=== PATIENT | female | born 1985 | race African-American/Black ===

== ENCOUNTER → 2017-02-08 | Outpatient (CLI) | payer BC ==
[~2017-02-08] MED LIST: ATORVASTATIN CA10 MG PO; AZULFIDINE ENT500 MG PO; AZULFIDINE PO; CERTAGEN PO; GLUCOPHAGE850 MG PO; LORTAB 5/500 TA1 TA1 PO; METFORMIN HCL1000 M1 PO; NAPROSYN-EC500 M1 DOB; PRILOSEC PO; SKELAXIN PO
--- NOTE | ~2017-02-08 | CR151 ---
[facility] A Service of [facility] & [facility] RADIOLOGY TEXT RESULTS PATIENT: JONATHAN GONSALES LOCATION: [facility] : [birth year] UNIT #: [id number] AGE: [address]: Janine Sosa MD SEX: F ORDER DR: [id number] [facility] [address] [place], [place] [address] [id number] O MR#: [id number] Acc #: [id number] NAME: JONATHAN GONSALES : 1985 SEX: F STUDY DATE/TIME: 02/08/2017 11:29 UNIT: [facility] ROOM: STUDY DESCRIPTION: CR Hip Min 2 Views Rt Attending Physician: Janine Sosa M.D. Referring Physician: Janine Sosa M.D. Ordering Physician: Janine Sosa M.D. Primary Care Physician: Janine Sosa M.D. MEDICAL IMAGING REPORT This report is preliminary unless electronic signature is present EXAM Right hip 3 views 02/08/2017 HISTORY Right hip pain chronic for 2 years with no known injury. FINDINGS AP and oblique examination of the hip shows adequate mineralization of the bones and a normal anatomic relationship of the femoral head with the acetabulum. There are no hypertrophic changes, fractures, dislocation, or joint capsular distension. No radiopaque foreign body is present about the soft tissues of the hip. IMPRESSION Normal hip. Dictated by... Ridge Steinberg M.D. THIS IS AN ELECTRONICALLY VERIFIED REPORT Ridge Steinberg M.D. at 02/11/2017 7:39 AM KIZZY/patito TD: 02/09/2017 01:07 JOB #: [id number] MEDICAL IMAGING REPORT Page 1 of 1 COPY
--- NOTE | ~2017-02-08 | CR184 ---
[facility] A Service of [facility] & [facility] RADIOLOGY TEXT RESULTS PATIENT: JONATHAN GONSALES LOCATION: [facility] : 83 UNIT #: [id number] AGE: [address]: Janine Sosa MD SEX: F ORDER DR: [id number] [facility] [address] [place], [place] [address] [id number] O MR#: [id number] Acc #: [id number] NAME: JONATHAN GONSALES : 1985 SEX: F STUDY DATE/TIME: 02/08/2017 11:40 UNIT: [facility] ROOM: STUDY DESCRIPTION: CR Lumbar Spine Min 4 Views Attending Physician: Janine Sosa M.D. Referring Physician: Janine Sosa M.D. Ordering Physician: Janine Sosa M.D. Primary Care Physician: Janine Sosa M.D. MEDICAL IMAGING REPORT This report is preliminary unless electronic signature is present EXAM Lumbar spine 5 views 02/08/2017 HISTORY Low back pain with right lower extremity radiculopathy for 2 years worse when standing no known injury. FINDINGS AP and lateral projections of the lumbar segment show good mineralization of both anterior and posterior elements. They are all anatomically normal without indication of fracture, dislocation, or malignant change of a sclerotic or lytic type. There is no congenital defect noted. The sacroiliac joints are normal. IMPRESSION Normal lumbar spine. Dictated by... Ridge Steinberg M.D. THIS IS AN ELECTRONICALLY VERIFIED REPORT Ridge Steinberg M.D. at 02/11/2017 7:39 AM KIZZY/patito TD: 02/09/2017 01:30 JOB #: [id number] MEDICAL IMAGING REPORT Page 1 of 1 COPY
== END | disposition home or self-care (01) ==
LOC: CRAD 11:03
DX: M25.551 Pain in right hip (principal); M54.16 Radiculopathy, lumbar region
CPT/HCPCS: 72110; 73502

== ENCOUNTER → 2017-02-27 | Day surgery (SDC) | payer BC ==
--- NOTE | ~2017-02-27 | OR ---
Unit #: [id number] #: [id number] Patient: JONATHAN GONSALES [id number] [address] [place], [place] [address] [id number] O MR#: [id number] NAME: JONATHAN GONSALES ROOM: Date of Procedure: 02/27/2017 Admission Date: 02/27/2017 Surgeon: Ambrosio Curry M.D. : 1985 Attending Physician: Ambrosio Curry M.D. Referring Physician: Ambrosio Curry M.D. Primary Care Physician: Janine Sosa M.D. OPERATIVE REPORT PRIMARY CARE PHYSICIAN Pop Austin M.D. PREOPERATIVE DIAGNOSIS Presence of blood in the stool. PROCEDURE PERFORMED Colonoscopy up to cecum and terminal ileum. POSTOPERATIVE DIAGNOSES Completely normal examination up to cecum and terminal ileum with excellent preparation and good visualization. The patient did not have any polyps nor any diverticula or hemorrhoids. RECOMMENDATIONS Reassurance is in order. SEDATION USED MAC. DESCRIPTION OF PROCEDURE Following detailed explanation of the potential risks and complications of a colonoscopy, namely perforation, bleeding, and complications related to sedation, the patient was brought to GI lab and laid in the left lateral decubitus position. A digital rectal examination was performed, which was normal. Lubricated tip of the Olympus video colonoscope was inserted through the anus and advanced under direct vision. The scope was advanced and passed up to sigmoid into descending colon. No diverticula were seen in this area. The scope tip was then navigated all the way up to cecum with visualization of the ileocecal valve and the appendiceal orifice. Preparation was excellent with good visualization and photodocumentation was obtained. Last few inches of terminal ileum also visualized after intubation of the ileocecal valve and appeared normal. Successive segments of the colonic mucosa were examined upon withdrawal and appeared unremarkable. There being no polyps, mass lesions, AVMs, or diverticula. The patient did not have any hemorrhoids at anal verge. The scope was withdrawn. The patient returned to the recovery area. She tolerated the procedure without any postprocedure complications. Dictated by... Unit #: [id number] #: [id number] Patient: JONATHAN GONSALES Danyel Quiles/ronn TD: 02/27/2017 08:29 JOB #: [id number] CC: Pop Austin M.D. OPERATIVE REPORT Page 1 of 1 X Ambrosio Curry MD PROCEDURE OPERATIVE NOTE
== END | disposition home or self-care (01) ==
LOC: COPS 06:37
DX: K92.1 Melena (principal); E11.9 Type 2 diabetes mellitus without complications; K21.9 Gastro-esophageal reflux disease without esophagitis; Z88.1 Allergy status to other antibiotic agents
CPT/HCPCS: 82947; 84703; J2250